=== PATIENT | male | born 1960 | race Two or more races ===

== ENCOUNTER → 2017-06-13 | Outpatient (CLI) | payer OTHER ==
[~2017-06-13] VITALS: Ht 170.2 cm; Wt 86.2 kg
[~2017-06-13] MED LIST: ADENOSINE 72 MG in GIVE UN-DILUTED 0 ML IV ONE; ADENOSINE 90 MG/30 ML INJ IV ONE
== END | disposition home or self-care (01) ==
LOC: Rad HDHVI 08:18
PROVIDERS: ATTEND Internal Medicine Cardiovascular Disease
DX: I10 Essential (primary) hypertension (principal); E11.9 Type 2 diabetes mellitus without complications; C18.9 Malignant neoplasm of colon, unspecified; E78.5 Hyperlipidemia, unspecified; K42.9 Umbilical hernia without obstruction or gangrene
CPT/HCPCS: 78452; 93005; 96374; 96375; A9500; J0153